=== PATIENT | male | born 1940 | race Caucasian/White ===

== ENCOUNTER 2018-01-28 16:11 | Emergency (ER) | payer OTHER ==
--- NOTE | 2018-01-28 16:33 | EDM.PDOC ---
ED HPI GENERAL MEDICAL PROBLEM - General Chief Complaint: ENT Problem Stated Complaint: NOSE BLEED Time Seen by Provider: 01/28/18 16:18 Source of Information: Reports: Patient, Family History Limitations: Reports: No Limitations - History of Present Illness INITIAL COMMENTS - FREE TEXT/NARRATIVE: 77-year-old male presents to the ED with an active right-sided nose bleed 45 minutes. No trauma to the nose. Patient is receiving chemotherapy and has had recent radiation to his left femur due to metastatic disease to the bone. His primary left-sided lung cancer and is starting chemotherapy. Last chemotherapy was on January 26. Platelet count was 170,000 at that time. Onset: Today Onset Date: 01/28/18 Onset Time: 15:30 Duration: Minutes: Location: Reports: Face Quality: Reports: Other Severity: Moderate (No pain.) Improves with: Reports: None Worsens with: Reports: None Context: Denies: Activity, Exercise, Lifting, Sick Contact, Trauma, Other Associated Symptoms: Denies: No Other Symptoms, Confusion, Chest Pain, Cough, cough w sputum, Diaphoresis, Fever/Chills, Headaches, Loss of Appetite, Malaise , Nausea/Vomiting, Rash, Shortness of Breath, Syncope, Weakness Treatments [employer]: Reports: Other (see below) (None.) - Related Data Allergies Allergy/AdvReac Type Severity Reaction Status Date / Time No Known Allergies Allergy Verified 01/28/18 16:27 Home Meds: Home Meds Levofloxacin [Levaquin] 500 mg PO DAILY #21 tab 07/18/14 [Rx] Phenazopyridine HCl [Pyridium] 200 mg PO Q6H #5 tablet 07/18/14 [Rx] Bacitracin/Polymyxin B Sulfate [Polysporin Ointment] 28.3 gm TP DAILY #1 oint...g. 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 Chronic prostatitis), Other Musculoskeletal: Reports: Back Pain, Other (Left femur had recent rodding done because of pathological fracture) Skin: Reports: Bruising Neurological: Reports: No Symptoms (His is easily) Psychiatric: Reports: No Symptoms Hematologic/Lymphatic: Reports: No Symptoms ED EXAM, ENT - Physical Exam Exam: See Below Exam Limited By: No Limitations General Appearance: Alert, WD/WN, Mild Distress (Quite anxious.) Nose: Active Bleeding ( This area was cauterized with silver nitrate mild no bleeding into detected on the left side appears that it was coming from the right side. ), Other (Has an active area of bleeding from the superior aspect of the anterior nasal septum right side.) Mouth/Throat: Other Head: Atraumatic, Normocephalic Neck: Normal Inspection, Supple, Non-Tender, Full Range of Motion. No: Lymphadenopathy (L), Lymphadenopathy (R) Respiratory/Chest: No Respiratory Distress, Lungs Clear, Normal Breath Sounds Cardiovascular: Normal Peripheral Pulses, Regular Rate, Rhythm, No Edema, No Gallop, No Murmur, No Rub GI/Abdominal: Normal Bowel Sounds, Soft, Non-Tender, No Organomegaly, No Abnormal Bruit, No Mass, Pelvis Stable Neurological: Alert, Oriented, CN II-XII Intact, Normal Cognition Psychiatric: Normal Affect, Normal Mood Skin: Warm, Dry, Intact, Normal Color, No Rash Course - Vital Signs Last Recorded V/S: Last Vital Signs Temp 37.3 C 01/28/18 16:23 Pulse 81 01/28/18 16:23 Resp 20 01/28/18 16:23 BP 121/55 L 01/28/18 16:23 Pulse Ox 92 L 01/28/18 16:23 - Radiology Interpretation Free Text/Narrative:: 77-year-old male presents to the ED with active bleeding from the right anterior knee naris. Patient is currently receiving chemotherapy and radiotherapy for primary left-sided lung cancer. Has known metastatic disease to bones. Last chemotherapy was 3 days ago. Is too early for the bone marrow to be severely incapacitated from chemotherapy. The area of the anterior nasal septum was cauterized with silver nitrate which worked very well to control the bleeding. He suddenly was able to express a large amount of clot from the posterior nares without any further active bleeding on recheck. Departure - Departure Time of Disposition: 16:43 Disposition: Home, Self-Care 01 Condition: Fair Clinical Impression: Anterior epistaxis - Discharge Information Prescriptions: Bacitracin/Polymyxin B Sulfate [Polysporin Ointment] 28.3 gm TP DAILY #1 oint...g. Instructions: Nosebleed, Adult, [id number] Referrals: PCP,Not In Area [Primary Care Provider] - Forms: ED Department Discharge Additional Instructions: Evaluation the emergency room today in regards to anterior nasal hemorrhage from the right naris. The area was identified and cauterized with silver nitrate which brought the bleeding under proper control. You able to express a good deal of clot from the posterior aspect of the right naris with no active further bleeding. The nasal bleeding is usually due to dryness of the lining of the nose which is worsened by chemotherapy and of course by oxygen use. Nasal prongs. Suggest use of Polysporin ointment into each side of the naris at least once daily perhaps an hour or so before bedtime when you're going to put her oxygen on. Of course return to the ED if you have any further nasal bleeding.
== END 2018-01-28 16:52 | disposition home or self-care (01) ==
LOC: JD.ED 16:11
DX: R04.0 Epistaxis (principal); J44.9 Chronic obstructive pulmonary disease, unspecified; C34.92 Malignant neoplasm of unspecified part of left bronchus or lung; C79.51 Secondary malignant neoplasm of bone; Z79.899 Other long term (current) drug therapy
CPT/HCPCS: 30901; 99283-25

== ENCOUNTER 2018-01-29 14:36 | Emergency (ER) | payer OTHER ==
[2018-01-29] MEDS ORDERED: Oxymetazoline 0.05% Nasal Spray 15 ML Bottle NAS ONE (15:54)
--- NOTE | 2018-01-29 17:05 | EDM.PDOC ---
ED HPI GENERAL MEDICAL PROBLEM - General Chief Complaint: ENT Problem Stated Complaint: NOSE BLEED Time Seen by Provider: 01/29/18 15:10 Source of Information: Reports: Patient History Limitations: Reports: No Limitations - History of Present Illness INITIAL COMMENTS - FREE TEXT/NARRATIVE: 77-year-old male presents for evaluation and treatment of nose bleed. Patient was seen in the ER yesterday. He had the right nare cauterized. He states since he has left his nosebleed has continued to ooze. States at times it was gushing blood. Currently bleeding is under control as he has some tissue up both nares. He states that he has been having bleeding from both nares. Reports associated symptoms of congestion. No trauma to the nose. Patient reports he has had some bleeding going on the back of his throat. Patient is currently receiving chemo and radiation for lung cancer with metastasis to his femur. Patient was in [place] today for radiation treatment. He is not currently on any blood thinners Right Upper Leg Pain Score (Numeric/FACES): 7 - Related Data Allergies Allergy/AdvReac Type Severity Reaction Status Date / Time No Known Allergies Allergy Verified 01/28/18 16:27 Home Meds: Home Meds Phenazopyridine HCl [Pyridium] 200 mg PO Q6H #5 tablet 07/18/14 [Rx] Bacitracin/Polymyxin B Sulfate [Polysporin Ointment] 28.3 gm TP DAILY #1 oint...g. 01/28/18 [Rx] Albuterol/Ipratropium [DuoNeb 3.0-0.5 MG/3 ML] 1 unit INH QID 01/29/18 [History] Aspirin 325 mg PO DAILY 01/29/18 [History] Cetirizine [ZyrTEC] 10 mg PO DAILY 01/29/18 [History] Cholecalciferol (Vitamin D3) [Vitamin D3] 1,000 unit PO DAILY 01/29/18 [History] Citalopram Hydrobromide [Celexa] 20 mg PO DAILY 01/29/18 [History] Divalproex Sodium [Depakote ER] 500 mg PO BEDTIME 01/29/18 [History] Doxazosin Mesylate [Cardura] 12 mg PO DAILY 01/29/18 [History] Finasteride [Proscar] 5 mg PO DAILY 01/29/18 [History] Gabapentin [Neurontin] 900 mg PO BEDTIME 01/29/18 [History] Hydrocodone/Acetaminophen [Hydrocodon-Acetaminophen 5-325] 5 - 325 mg PO Q4H PRN 01/29/18 [History] Hydrocortisone [Anusol-HC] 1 applic RECTAL QID PRN 01/29/18 [History] Hydrocortisone [Hydrocortisone 1% Crm] 1 applic TOP BID 01/29/18 [History] Hydrophilic Ointment [Hydrophilic] 1 applic TOP BID 01/29/18 [History] Losartan [Cozaar] 50 mg PO DAILY 01/29/18 [History] NIFEdipine [Procardia] 1 supp RECTAL BID PRN 01/29/18 [History] Naproxen Sodium [Aleve] 220 - 440 mg PO DAILY PRN 01/29/18 [History] Ondansetron [Zofran] 8 mg PO Q8H PRN 01/29/18 [History] Sennosides [Senna] 2 tab PO BID 01/29/18 [History] Witch Kusum [Tucks] 1 applic TOP TID PRN 01/29/18 [History] atorvaSTATin [Lipitor] 40 mg PO BEDTIME 01/29/18 [History] metFORMIN [Glucophage XR] 500 mg PO BID 01/29/18 [History] oxyCODONE 10 mg PO Q4H PRN 01/29/18 [History] Past Medical History HEENT History: Reports: Epistaxis Cardiovascular History: Reports: High Cholesterol, Hypertension Respiratory History: Reports: COPD Other Respiratory History: lung CA Gastrointestinal History: Reports: Hemorrhoids Genitourinary History: Reports: BPH, Prostate Disorder Other Genitourinary History: states "i habe blood in my pee ometimes, at least thats what they tell me" Psychiatric History: Reports: Anxiety, Bipolar, Depression, Mood Swings Endocrine/Metabolic History: Reports: Diabetes, Type II Oncologic (Cancer) History: Reports: 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 - Past Surgical History GI Surgical History: Reports: Hernia, Abdominal Musculoskeletal Surgical History: Reports: Knee Replacement, Shoulder Replacement, Shoulder Surgery Social & Family History - Family History Family Medical History: Noncontributory - Tobacco Use Smoking Status *Q: Former Smoker Used Tobacco, but Quit: Yes Month/Year Tobacco Last Used: 30 yrs - Caffeine Use Caffeine Use: Reports: Coffee, Soda, Tea - Recreational Drug Use Recreational Drug Use: No - Living Situation & Occupation Living situation: Reports: Single Occupation: Retired ED ROS ENT - Review of Systems Review Of Systems: See Below HEENT: Reports: Nosebleed, Other (reports congestion) ED EXAM, ENT - Physical Exam Exam: See Below Exam Limited By: No Limitations General Appearance: Alert, WD/WN, No Apparent Distress Ears: Normal External Exam Nose: Normal Inspection, Dried Blood (Right there). No: Nasal Tenderness, Septal Hematoma, Septal Perforation, Active Bleeding Mouth/Throat: Normal Inspection, Normal Lips, Normal Oropharynx, Normal Teeth, Other (Mild amount of blood in the posterior oropharynx) Respiratory/Chest: No Respiratory Distress Neurological: Alert, Oriented, Normal Cognition, Normal Gait Psychiatric: Normal Affect, Normal Mood Skin: Warm, Dry, Pallor Course - Vital Signs Last Recorded V/S: Last Vital Signs Temp 36.8 C 01/29/18 14:47 Pulse 82 01/29/18 14:47 Resp 16 01/29/18 17:15 BP 138/54 L 01/29/18 14:47 Pulse Ox 96 01/29/18 17:15 - Orders/Labs/Meds Labs: Laboratory Tests 01/29/18 01/29/18 Range/Units 16:20 16:20 WBC 5.64 (4.23-9.07) K/mm3 RBC 2.96 L (4.63-6.08) M/mm3 Hgb 8.8 L (13.7-17.5) gm/L Hct 27.6 L (40.1-51.0) % MCV 93.2 H (79.0-92.2) fl MCH 29.7 (25.7-32.2) pg MCHC 31.9 L (32.2-35.5) g/dl RDW Std Deviation 45.4 H (35.1-43.9) fL Plt Count 157 L (163-337) K/mm3 MPV 9.7 (9.4-12.3) fl Neut % (Auto) 79.3 H (34.0-67.9) % Lymph % (Auto) 11.9 L (21.8-53.1) % Hernando % (Auto) 8.2 (5.3-12.2) % Eos % (Auto) 0.4 L (0.8-7.0) Baso % (Auto) 0.0 L (0.1-1.2) % Neut # (Auto) 4.48 (1.78-5.38) K/mm3 Lymph # (Auto) 0.67 L (1.32-3.57) K/mm3 Hernando # (Auto) 0.46 (0.30-0.82) K/mm3 Eos # (Auto) 0.02 L (0.04-0.54) K/mm3 Baso # (Auto) 0.00 L (0.01-0.08) K/mm3 PT 11.1 (9.5-12.1) SECONDS INR 1.02 APTT 26 (24-31) SECONDS Meds: Medications Discontinued Medications Generic Name Dose Route Start Last Admin Trade Name Freq PRN Reason Stop Dose Admin Oxymetazoline HCl 2 ml 01/29/18 15:54 01/29/18 15:56 Afrin Original 0.05% Nasal Irwin LUISANA 01/29/18 15:55 2 spray ONETIME ONE Administration - Re-Assessments/Exams Free Text/Narrative Re-Assessment/Exam: 01/29/18 17:01 I reviewed the labs with the patient. Upon arrival of the ER did have the patient blow out any clots. He did blowout a large approximate half-dollar size clot to the right near. He has not had any bleeding from the left nare. He also gargled some water and removed any blood from the posterior oropharynx. On reexamination no new blood was appreciated. I did have nursing staff apply 2 sprays of Afrin. This greatly helped with his congestion and he has not had any bleeding since she's been in the I did offer to place a Rhino Rocket soaked in TXA as he states he continues to ooze blood. He is adamant he does not want this. At this point he would like to go home. As stated he has not had any rebleeding since entering the ER and is doing well after the Afrin. Instructed to use pressure and he may utilize a few squirts of Afrin if he rebleeds. Instructed to follow-up with ear, nose and throat as needed. Discharge instructions as documented. Departure - Departure Time of Disposition: 17:02 Disposition: Home, Self-Care 01 Condition: Fair Clinical Impression: Epistaxis - Discharge Information Instructions: Nosebleed, Adult, [id number] Referrals: PCP,Not In Area [Primary Care Provider] - Forms: ED Department Discharge Additional Instructions: Follow-up with your primary care provider as needed. you may use Afrin, this is available [id number], 1 or 2 sprays in the bleeding nostril if you do develop a recurrence of your nose bleed. Apply pressure. For severe nosebleeds that are not responding to pressure and Afrin please return to the ER. A\\Do not use afrin more than 5 days as this may cause rebound congestion. Recommend using humidity. Follow-up with your oncologist as planned. If nosebleeds continue to be a problem or a daily occurrence for you, considering seeing ear, nose and throat [facility]. They are able go in and cauterize problematic vessels. please return to the ER if your symptoms change or worsen.
== END 2018-01-29 17:14 | disposition home or self-care (01) ==
LOC: JD.ED 14:36
DX: R04.0 Epistaxis (principal); E78.00 Pure hypercholesterolemia, unspecified; I10 Essential (primary) hypertension; E11.9 Type 2 diabetes mellitus without complications; Z79.82 Long term (current) use of aspirin; Z79.899 Other long term (current) drug therapy; Z79.84 Long term (current) use of oral hypoglycemic drugs; Z87.891 Personal history of nicotine dependence
CPT/HCPCS: 36415; 85025; 85610; 85730; 99283

== ENCOUNTER 2018-02-04 17:39 | Emergency (ER) | payer OTHER ==
--- NOTE | 2018-02-04 18:16 | EDM.PDOC ---
ED HPI GENERAL MEDICAL PROBLEM - General Chief Complaint: Lower Extremity Injury/Pain Stated Complaint: LEG PAIN/AND HE HEARD A POP Time Seen by Provider: 02/04/18 18:16 Source of Information: Reports: Patient - History of Present Illness INITIAL COMMENTS - FREE TEXT/NARRATIVE: Patient is here for evaluation of pain to the right upper leg. He states that just before arrival he was walking and turned around the edge of his car and felt himself slip/trip, he did catch himself without falling. He noted significant pain to his right upper leg after that. He is unable to bear weight due to the pain. Patient does have metastatic lung cancer, recently had tumor removal to his right femur with eli placement approximately one month ago. Right Leg Pain Score (Numeric/FACES): 7 - Related Data Allergies Allergy/AdvReac Type Severity Reaction Status Date / Time No Known Allergies Allergy Verified 02/04/18 18:00 Home Meds: Home Meds Albuterol/Ipratropium [DuoNeb 3.0-0.5 MG/3 ML] 1 unit INH QID 01/29/18 [History] Aspirin 325 mg PO DAILY 01/29/18 [History] Cetirizine [ZyrTEC] 10 mg PO DAILY 01/29/18 [History] Cholecalciferol (Vitamin D3) [Vitamin D3] 1,000 unit PO DAILY 01/29/18 [History] Citalopram Hydrobromide [Celexa] 20 mg PO DAILY 01/29/18 [History] Divalproex Sodium [Depakote ER] 500 mg PO BEDTIME 01/29/18 [History] Doxazosin Mesylate [Cardura] 12 mg PO DAILY 01/29/18 [History] Finasteride [Proscar] 5 mg PO DAILY 01/29/18 [History] Gabapentin [Neurontin] 900 mg PO BEDTIME 01/29/18 [History] Hydrocodone/Acetaminophen [Hydrocodon-Acetaminophen 5-325] 1 - 2 tab PO Q4H PRN 01/29/18 [History] Hydrocortisone [Anusol-HC] 1 applic RECTAL QID 01/29/18 [History] Hydrophilic Ointment [Hydrophilic] 1 applic TOP BID PRN 01/29/18 [History] Losartan [Cozaar] 25 mg PO DAILY 01/29/18 [History] NIFEdipine [Procardia] 1 supp RECTAL BID PRN 01/29/18 [History] Naproxen Sodium [Aleve] 220 - 440 mg PO DAILY PRN 01/29/18 [History] Ondansetron [Zofran] 8 mg PO Q8H PRN 01/29/18 [History] Sennosides [Senna] 2 tab PO BID 01/29/18 [History] Mirian Noe [Tucks] 1 applic TOP TID PRN 01/29/18 [History] atorvaSTATin [Lipitor] 80 mg PO BEDTIME 01/29/18 [History] metFORMIN [Glucophage XR] 500 mg PO BID 01/29/18 [History] oxyCODONE 10 mg PO Q4H PRN 01/29/18 [History] Hydrocortisone [Anusol-Hc] 1 applic TP ASDIRECTED PRN 02/04/18 [History] Hydrocortisone1%-Clotrimazole 1 applic TOP BID 02/04/18 [History] Nifedipine 0.2%-Lidocaine 2%. 1 supp RECTAL BID PRN 02/04/18 [History] Sennosides/Docusate Sodium [Senna-Docusate Sodium] 2 each PO BID 02/04/18 [ History] Past Medical History HEENT History: Reports: Epistaxis Cardiovascular History: Reports: High Cholesterol, Hypertension Respiratory History: Reports: COPD Other Respiratory History: lung CA Gastrointestinal History: Reports: Hemorrhoids Genitourinary History: Reports: BPH, Prostate Disorder Other Genitourinary History: states "i habe blood in my pee ometimes, at least thats what they tell me" Psychiatric History: Reports: Anxiety, Bipolar, Depression, Mood Swings Endocrine/Metabolic History: Reports: Diabetes, Type II Oncologic (Cancer) History: Reports: 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 - Past Surgical History GI Surgical History: Reports: Hernia, Abdominal Musculoskeletal Surgical History: Reports: Knee Replacement, Shoulder Replacement, Shoulder Surgery Social & Family History - Family History Family Medical History: Noncontributory - Tobacco Use Smoking Status *Q: Never Smoker - Caffeine Use Caffeine Use: Reports: Coffee - Recreational Drug Use Recreational Drug Use: No - Living Situation & Occupation Living situation: Reports: Single Occupation: Retired Review of Systems - Review of Systems Review Of Systems: See Below Respiratory: Reports: No Symptoms Cardiovascular: Reports: No Symptoms Musculoskeletal: Reports: Leg Pain (Right upper) Skin: Reports: No Symptoms Neurological: Reports: Difficulty Walking. Denies: Numbness, Tingling, Weakness ED EXAM, GENERAL - Physical Exam Exam: See Below Exam Limited By: No Limitations General Appearance: Alert, WD/WN, No Apparent Distress Peripheral Pulses: 2+: Posterior Tibial (R) Extremities: Leg Pain, Other (Right leg with well-healed surgical scars over hip and anterior knee. No obvious deformity or ecchymosis. No swelling noted. Patient has pain to posterior thigh with movement of the knee or hip. No tenderness to hip or knee. Minimal tenderness to mid femur posteriorly.) Neurological: Alert, Oriented, No Motor/Sensory Deficits Psychiatric: Normal Affect, Normal Mood Skin Exam: Warm, Dry, Intact Course - Vital Signs Last Recorded V/S: Last Vital Signs Temp 98 F 02/04/18 17:56 Pulse 74 02/04/18 17:56 Resp 18 02/04/18 17:56 BP 131/63 02/04/18 17:56 Pulse Ox 94 L 02/04/18 17:56 - Orders/Labs/Meds Orders: Active Orders 24 hr Category Date Time Status Femur Min 2V Rt [CR] Stat Exams 02/04/18 18:44 Taken - Re-Assessments/Exams Free Text/Narrative Re-Assessment/Exam: Patient has his own, hydrocodone 5-325mg with him, took this at time of arrival. He states he was on this previously after his hip surgery, but has not needed this in several days. Will get x-ray of right femur to further assess. 02/04/18 18:28 X-ray demonstrates lytic lesion. Femoral eli is in good position. No acute findings noted. Official report is pending, x-ray was reviewed with Dr. See. Recommend that patient be nonweightbearing and use crutches, patient declines to do this due to chronic shoulder arthritis. Patient was tried in a long-leg brace/immobilizer and did well with this. Recommend minimal weight-bearing. Ibuprofen as needed for pain, hydrocodone for breakthrough pain. He is to follow-up with his primary provider or his orthopedic provider within the next week. Return to emergency room if needed. 02/04/18 19:38 Departure - Departure Time of Disposition: 19:39 Disposition: Home, Self-Care 01 Condition: Good Clinical Impression: Upper leg pain Qualifiers: Laterality: right Qualified Code(s): M79.651 - Pain in right thigh - Discharge Information Instructions: Hamstring Strain Referrals: PCP,Not In Area [Primary Care Provider] - Forms: ED Department Discharge Additional Instructions: Rest, activity as tolerated. Wearing your brace when you're up throughout the day. Aleve 2x daily. Ice as needed for pain. Hydrocodone for breakthrough pain. You need to follow up with either your primary provider or your orthopedic provider within the next week. If you have any problems with coordinating this through [facility] you can call Chichi Vargas' office at [phone]. Return to the emergency room if any worsening of symptoms or any concerns. - My Orders Last 24 Hours: My Active Orders 02/04/18 18:44 Femur Min 2V Rt [CR] Stat - Assessment/Plan Last 24 Hours: My Active Orders 02/04/18 18:44 Femur Min 2V Rt [CR] Stat
--- NOTE | 2018-02-04 20:45 | CR ---
Right femur: 2 views of the right femur are obtained. Comparison: No previous study. Intramedullary eli is noted as well as fixation nail into the femoral head. There is an ill-defined lucency within the medial cortex of the mid one third femur with slight periosteal reaction suspicious for possible osteomyelitis. Well defined tract is identified in the same region along the lateral aspect of the femoral cortex presumably being postsurgical. Knee prosthesis is noted. Vascular calcification is seen. No additional abnormality is seen. Impression: 1. Ill defined lucency within the medial cortex of the mid one third femur with adjacent periosteal reaction suspicious for osteomyelitis. 2. Well-defined lucency along the lateral aspect of the femoral shaft in the same region most likely a postsurgical defect. 3. Other incidental findings. Diagnostic code #5
== END 2018-02-04 19:52 | disposition home or self-care (01) ==
LOC: JD.ED 17:39
DX: M79.651 Pain in right thigh (principal); E78.00 Pure hypercholesterolemia, unspecified; I10 Essential (primary) hypertension; J44.9 Chronic obstructive pulmonary disease, unspecified; F31.9 Bipolar disorder, unspecified; F41.9 Anxiety disorder, unspecified; E11.9 Type 2 diabetes mellitus without complications; Z79.82 Long term (current) use of aspirin; Z79.899 Other long term (current) drug therapy; Z79.84 Long term (current) use of oral hypoglycemic drugs
CPT/HCPCS: 73552-26-RT; 73552-RT; 99283

== ENCOUNTER 2021-06-05 15:54 | Emergency (ER) | payer OTHER ==
[2021-06-05] MEDS ORDERED: Ondansetron 4 MG/2 ML SDV IVPUSH ONE (18:20)
[2021-06-05] MEDS ORDERED: HYDROmorphone 0.5 MG/0.5 ML Syringe IVPUSH ONE (18:20)
[2021-06-05] MEDS ORDERED: Sodium Chloride 0.9% 1,000 ML IV SCH (18:30)
[2021-06-05] MEDS ORDERED: diphenhydrAMINE 50 MG/ML SDV IVPUSH PRN (19:02)
[2021-06-05] MEDS ORDERED: EPINEPHrine 1 MG/ML SDV IM PRN (19:02)
[2021-06-05] MEDS ORDERED: Famotidine 20 MG/2 ML SDV IVPUSH PRN (19:02)
[2021-06-05] MEDS ORDERED: methylPREDNISolone Sodium Succinate 125 MG/2 ML SDV IVPUSH PRN (19:02)
[2021-06-05] MEDS ORDERED: Sodium Chloride 0.9% 10 ML Syringe FLUSH SCH (19:15)
--- NOTE | 2021-06-05 19:18 | EDM.PDOC ---
ED HPI GENERAL MEDICAL PROBLEM - General Chief Complaint: Respiratory Problem Stated Complaint: COVID +/WORSENING SYMPTOMS Time Seen by Provider: 06/05/21 16:48 Source of Information: Reports: Patient, RN Notes Reviewed - History of Present Illness INITIAL COMMENTS - FREE TEXT/NARRATIVE: 80 yr old male became ill with cough, chills, low grade fever, diarrhea about 8 days ago. Has recently tested positive for covid. He did get the vaccine last spring. He has hx of treated lung cancer, COPD, CAD, diabetes. He feels worse, Usehas been more short of breath the last few day, no appetite, more diarrhea the last few days. Uses oxygen at home at night, some of the time during the day. Generalized Pain Score (Numeric/FACES): 7 - Related Data Allergies Allergy/AdvReac Type Severity Reaction Status Date / Time No Known Allergies Allergy Verified 06/05/21 16:31 Home Meds: Home Meds Albuterol/Ipratropium [DuoNeb 3.0-0.5 MG/3 ML] 1 unit INH QID 01/29/18 [History] Aspirin 325 mg PO DAILY 01/29/18 [History] Cetirizine [ZyrTEC] 10 mg PO DAILY 01/29/18 [History] Cholecalciferol (Vitamin D3) [Vitamin D3] 1,000 unit PO DAILY 01/29/18 [History] Citalopram Hydrobromide [Celexa] 20 mg PO DAILY 01/29/18 [History] Divalproex Sodium [Depakote ER] 500 mg PO BEDTIME 01/29/18 [History] Doxazosin Mesylate [Cardura] 12 mg PO DAILY 01/29/18 [History] Finasteride [Proscar] 5 mg PO DAILY 01/29/18 [History] Gabapentin [Neurontin] 900 mg PO BEDTIME 01/29/18 [History] Hydrocodone/Acetaminophen [Hydrocodon-Acetaminophen 5-325] 1 - 2 tab PO Q4H PRN 01/29/18 [History] Hydrocortisone [Anusol-HC] 1 applic RECTAL QID 01/29/18 [History] Hydrophilic Ointment [Hydrophilic] 1 applic TOP BID PRN 01/29/18 [History] Losartan [Cozaar] 25 mg PO DAILY 01/29/18 [History] NIFEdipine [Procardia] 1 supp RECTAL BID PRN 01/29/18 [History] Naproxen Sodium [Aleve] 220 - 440 mg PO DAILY PRN 01/29/18 [History] Ondansetron [Zofran] 8 mg PO Q8H PRN 01/29/18 [History] Sennosides [Senna] 2 tab PO BID 01/29/18 [History] atorvaSTATin [Lipitor] 80 mg PO BEDTIME 01/29/18 [History] metFORMIN [Glucophage XR] 500 mg PO BID 01/29/18 [History] oxyCODONE 10 mg PO Q4H PRN 01/29/18 [History] gonzalo Lafleur [Tucks] 1 applic TOP TID PRN 01/29/18 [History] Hydrocortisone [Anusol-Hc] 1 applic TP ASDIRECTED PRN 02/04/18 [History] Hydrocortisone1%-Clotrimazole 1 applic TOP BID 02/04/18 [History] Nifedipine 0.2%-Lidocaine 2%. 1 supp RECTAL BID PRN 02/04/18 [History] Sennosides/Docusate Sodium [Senna-Docusate Sodium] 2 each PO BID 02/04/18 [History] Past Medical History HEENT History: Reports: Epistaxis Cardiovascular History: Reports: High Cholesterol, Hypertension Respiratory History: Reports: COPD Other Respiratory History: lung CA Gastrointestinal History: Reports: Hemorrhoids Genitourinary History: Reports: BPH, Prostate Disorder Other Genitourinary History: states "i habe blood in my pee ometimes, at least thats what they tell me" Psychiatric History: Reports: Anxiety, Bipolar, Depression, Mood Swings Endocrine/Metabolic History: Reports: Diabetes, Type II Oncologic (Cancer) History: Reports: 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 Denies: Diaphoresis HEENT: Reports: Rhinitis. Denies: Throat Pain Respiratory: Reports: Shortness of Breath, Cough Cardiovascular: Denies: Chest Pain Endocrine: Reports: Fatigue GI/Abdominal: Reports: Diarrhea, Decreased Appetite, Nausea. Denies: Abdominal Pain, Vomiting Musculoskeletal: Reports: Other (generalized achiness) Skin: Denies: Rash Neurological: Reports: Headache, Weakness (generalized) ED EXAM, GENERAL - Physical Exam Exam: See Below General Appearance: Alert, No Apparent Distress Head: Atraumatic Neck: Supple Cardiovascular: Regular Rate, Rhythm GI/Abdominal: Non-Tender. No: Guarding Extremities: Normal Inspection. No: Pedal Edema, Leg Pain, Increased Warmth, Redness Neurological: Alert, Oriented, No Motor/Sensory Deficits Skin Exam: Warm, Dry, Normal Color Course - Vital Signs Last Recorded V/S: Last Vital Signs Temp 100.0 F 06/05/21 16:19 Pulse 93 06/05/21 16:19 Resp 23 H 06/05/21 16:19 BP 131/59 L 06/05/21 16:19 Pulse Ox 93 L 06/05/21 16:19 - Orders/Labs/Meds Labs: Laboratory Tests 06/05/21 06/05/21 Range/Units 17:39 17:39 WBC 3.28 L (4.23-9.07) K/mm3 RBC 3.64 L (4.63-6.08) M/mm3 Hgb 10.6 L D (13.7-17.5) gm/dl Hct 33.5 L (40.1-51.0) % MCV 92.0 (79.0-92.2) fl MCH 29.1 (25.7-32.2) pg MCHC 31.6 L (32.2-35.5) g/dl RDW Std Deviation 47.1 H (35.1-43.9) fL Plt Count 85 L (163-337) K/mm3 MPV 10.8 (9.4-12.3) fl Neut % (Auto) 69.5 H (34.0-67.9) % Lymph % (Auto) 12.2 L (21.8-53.1) % [place] % (Auto) 18.0 H (5.3-12.2) % Eos % (Auto) 0 L (0.8-7.0) Baso % (Auto) 0.0 L (0.1-1.2) % Neut # (Auto) 2.28 (1.78-5.38) K/mm3 Lymph # (Auto) 0.40 L (1.32-3.57) K/mm3 [place] # (Auto) 0.59 (0.30-0.82) K/mm3 Eos # (Auto) 0.00 L (0.04-0.54) K/mm3 Baso # (Auto) 0.00 L (0.01-0.08) K/mm3 Manual Slide Review Abnormal smear Sodium 139 (136-145) mEq/L Potassium 4.0 (3.5-5.1) mEq/L Chloride 103 (98-107) mEq/L Carbon Dioxide 28 (21-32) mEq/L Anion Gap 12.0 (5-15) BUN 34 H (7-18) mg/dL Creatinine 1.6 H (0.7-1.3) mg/dL Est Cr Clr Drug Dosing 35.00 mL/min Estimated GFR (MDRD) 42 (>60) mL/min BUN/Creatinine Ratio 21.3 H (14-18) Glucose 138 H (70-99) mg/dL Calcium 7.8 L (8.5-10.1) mg/dL Total Bilirubin 0.6 (0.2-1.0) mg/dL AST 43 H (15-37) U/L ALT 44 (16-63) U/L Alkaline Phosphatase 70 (46-116) U/L C-Reactive Protein 6.7 H* (<1.0) mg/dL Total Protein 6.5 (6.4-8.2) g/dl Albumin 3.1 L (3.4-5.0) g/dl Globulin 3.4 gm/dL Albumin/Globulin Ratio 0.9 L (1-2) Meds: Medications Discontinued Medications Generic Name Dose Route Start Last Admin Trade Name Freq PRN Reason Stop Dose Admin Diphenhydramine HCl 50 mg 06/05/21 19:02 Diphenhydramine 50 Mg/Ml Sdv IVPUSH ONETIME PRN hypersensitivity reaction Epinephrine HCl 0.3 mg 06/05/21 19:02 Epinephrine 1 Mg/Ml Sdv IM ONETIME PRN hypersensitivity reaction Famotidine 20 mg 06/05/21 19:02 Famotidine 20 Mg/2 Ml Sdv IVPUSH ONETIME PRN hypersensitivity reaction Heparin Sodium (Porcine) 500 units 06/05/21 20:14 06/05/21 20:19 Heparin Sodium 100 Units/Ml 5 Ml Syringe FLUSH 06/05/21 20:15 500 units ASDIRECTED ONE Administration Hydromorphone HCl 0.5 mg 06/05/21 18:20 06/05/21 19:04 Hydromorphone 0.5 Mg/0.5 Ml Syringe IVPUSH 06/05/21 18:21 0.5 mg ONETIME ONE Administration Sodium Chloride 1,000 mls @ 999 mls/hr 06/05/21 18:30 06/05/21 19:04 Normal Saline IV 999 mls/hr ONETIME CORRINA Administration CASIRIVIMAB/IMDEVIMAB 10 ml/ 110 mls @ 220 mls/hr 06/05/21 19:02 06/05/21 19:29 Sodium Chloride IV 06/05/21 19:31 220 mls/hr ONETIME ONE Administration Methylprednisolone Sodium Succinate 125 mg 06/05/21 19:02 Methylprednisolone Sodium Succinate 125 Mg/2 Ml Sdv IVPUSH ONETIME PRN hypersensitivity reaction Ondansetron HCl 4 mg 06/05/21 18:20 06/05/21 19:22 Ondansetron 4 Mg/2 Ml Sdv IVPUSH 06/05/21 18:21 Not Given ONETIME ONE Sodium Chloride 30 ml 06/05/21 19:15 Sodium Chloride 0.9% 10 Ml Syringe FLUSH ASDIRECTED CORRINA - Re-Assessments/Exams Free Text/Narrative Re-Assessment/Exam: 06/06/21 11:07 CXR is clear, no visible pneumonia. Labs relatively OK, CRP 6.7. With his age and multiple underlying medical conditions he is a reasonable candidate for IV regeneron. Risks/ benefits discussed with patient. He wants to get it as long as we can do it as soon as possible so he can get home. Discussed with patient that this is an emergency autherization medication, does not have FDA approval. He has no further questions, voices understanding and agrees to proceed with IV reg. treatment. Departure - Departure Time of Disposition: 19:16 Disposition: Home, Self-Care 01 Condition: Fair Clinical Impression: COVID-19 virus infection, Diarrhea - Discharge Information Instructions: Prone Position Therapy, COVID-19 Referrals: Skager,Melody, MD [Primary Care Provider] - Forms: ED Department Discharge Additional Instructions: Rest. Drink plenty of water to maintain hydration. Tylenol q 6 to 8 hr for headache, other discomfort as needed. Continue to isolate at home until cleared by the [facility]. Return to ED for severe difficulty breathing or otherwise as needed.
--- NOTE | 2021-06-06 07:48 | CR ---
Chest: Frontal view of the chest was obtained. Comparison: No prior chest imaging is available. Heart size is normal. Tortuous thoracic aorta is seen with atherosclerotic calcification. Right shoulder prosthesis is noted. Slight linear density is seen within the left upper chest most likely representing an area of scarring. Infusion port is seen on the left side entering the superior vena cava. Impression: 1. Findings which are believed to be chronic as noted above. 2. Nothing acute is seen. Diagnostic code #2
== END 2021-06-05 20:35 | disposition home or self-care (01) ==
LOC: JD.ED 15:54
DX: U07.1 COVID-19 (principal); R19.7 Diarrhea, unspecified; I10 Essential (primary) hypertension; E78.00 Pure hypercholesterolemia, unspecified; J44.9 Chronic obstructive pulmonary disease, unspecified; E11.9 Type 2 diabetes mellitus without complications; Z79.82 Long term (current) use of aspirin; Z79.899 Other long term (current) drug therapy; Z79.84 Long term (current) use of oral hypoglycemic drugs; Z86.16 Personal history of COVID-19
CPT/HCPCS: 36415; 71045; 80053; 85025; 86140; 96374; 99284; J1170; J1642; J7030; M0243; Q0243

== ENCOUNTER 2021-07-23 20:24 | Emergency (ER) | payer OTHER ==
--- NOTE | 2021-07-23 21:28 | EDM.PDOC ---
ED HPI GENERAL MEDICAL PROBLEM - General Chief Complaint: Chest Pain Stated Complaint: [facility] Time Seen by Provider: 07/23/21 20:56 Source of Information: Reports: Patient, Family (Daughter) History Limitations: Reports: No Limitations - History of Present Illness INITIAL COMMENTS - FREE TEXT/NARRATIVE: Mr. Nevarez is a pleasant 80-year-old gentleman who is now brought to the ED by EMS for sharp, intermittent left sided chest pain. He indicates the site of the pain is immediately inferior to his left breast, and he points to the area with one finger. He states that when present, the pain typically lasts for 3 to 4 seconds, and that it recurred about every 5 minutes, to a total of 7 episodes today. He acknowledges, however, that he experienced the same pain when he was diagnosed with COVID-19 on or about 06/06/2021, plus another episode about 1 week after that, plus another episode of while after that. He has not identified any modifiers. He states that he has had chronic dyspnea for the past 9 years, which is unchanged, and denies any other associated symptoms, such as nausea, diaphoresis, or sense of impending doom. Here in the ED, the patient's initial BP was found to be elevated at 179/78, otherwise, he is hemodynamically stable, afebrile, saturating 97% on 3 L of oxygen per nasal cannula. He is supposed to take oxygen all the time, but states that in reality he only uses it when he is at home. The patient states that he is on an anticoagulant, whose name he does not recall, for A. fib/flutter. Other than the recurrent chest pain and chronic dyspnea, the patient denies having a recent fever, chills, sore throat, ear pain, nasal or sinus congestion, cough, palpitations, nausea, vomiting, constipation, diarrhea, abdominal pain, urinary symptoms, recent weight gain or weight loss, recent bloody bowel movements or black bowel movements, recent joint aches, headaches, or rashes. I reviewed the PMHx/PSHx/SocHx, which was reviewed with the patient by the RN. The patient's PCP is at [facility] in [place], [place]. He has received 2 COVID vaccinations, as well as an influenza vaccination this season. - Related Data Allergies Allergy/AdvReac Type Severity Reaction Status Date / Time No Known Allergies Allergy Verified 07/23/21 20:37 Home Meds: Home Meds Albuterol/Ipratropium [DuoNeb 3.0-0.5 MG/3 ML] 1 unit INH QID 01/29/18 [History] Aspirin 325 mg PO DAILY 01/29/18 [History] Cetirizine [ZyrTEC] 10 mg PO DAILY 01/29/18 [History] Cholecalciferol (Vitamin D3) [Vitamin D3] 1,000 unit PO DAILY 01/29/18 [History] Citalopram Hydrobromide [Celexa] 20 mg PO DAILY 01/29/18 [History] Divalproex Sodium [Depakote ER] 500 mg PO BEDTIME 01/29/18 [History] Doxazosin Mesylate [Cardura] 12 mg PO DAILY 01/29/18 [History] Finasteride [Proscar] 5 mg PO DAILY 01/29/18 [History] Gabapentin [Neurontin] 900 mg PO BEDTIME 01/29/18 [History] Hydrocodone/Acetaminophen [Hydrocodon-Acetaminophen 5-325] 1 - 2 tab PO Q4H PRN 01/29/18 [History] Hydrocortisone [Anusol-HC] 1 applic RECTAL QID 01/29/18 [History] Hydrophilic Ointment [Hydrophilic] 1 applic TOP BID PRN 01/29/18 [History] Losartan [Cozaar] 25 mg PO DAILY 01/29/18 [History] NIFEdipine [Procardia] 1 supp RECTAL BID PRN 01/29/18 [History] Naproxen Sodium [Aleve] 220 - 440 mg PO DAILY PRN 01/29/18 [History] Ondansetron [Zofran] 8 mg PO Q8H PRN 01/29/18 [History] Sennosides [Senna] 2 tab PO BID 01/29/18 [History] atorvaSTATin [Lipitor] 80 mg PO BEDTIME 01/29/18 [History] metFORMIN [Glucophage XR] 500 mg PO BID 01/29/18 [History] oxyCODONE 10 mg PO Q4H PRN 01/29/18 [History] witch Ciarra [Tucks] 1 applic TOP TID PRN 01/29/18 [History] Hydrocortisone [Anusol-Hc] 1 applic TP ASDIRECTED PRN 02/04/18 [History] Hydrocortisone1%-Clotrimazole 1 applic TOP BID 02/04/18 [History] Nifedipine 0.2%-Lidocaine 2%. 1 supp RECTAL BID PRN 02/04/18 [History] Sennosides/Docusate Sodium [Senna-Docusate Sodium] 2 each PO BID 02/04/18 [History] Past Medical History HEENT History: Reports: Epistaxis Cardiovascular History: Reports: High Cholesterol, Hypertension Respiratory History: Reports: COPD Other Respiratory History: lung CA Gastrointestinal History: Reports: Hemorrhoids Genitourinary History: Reports: BPH, Prostate Disorder Other Genitourinary History: states "i habe blood in my pee ometimes, at least thats what they tell me" Psychiatric History: Reports: Anxiety, Bipolar, Depression, Mood Swings Endocrine/Metabolic History: Reports: Diabetes, Type II, Obesity/BMI 30+ Oncologic (Cancer) History: Reports: 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 - Infectious Disease History Infectious Disease History: Reports: Novel Coronavirus - Past Surgical History GI Surgical History: Reports: Hernia, Abdominal Musculoskeletal Surgical History: Reports: Knee Replacement, Shoulder Replacement, Shoulder Surgery Social & Family History - Family History Family Medical History: No Pertinent Family History - Tobacco Use Tobacco Use Status *Q: Former Tobacco User Used Tobacco, but Quit: Yes Month/Year Tobacco Last Used: 1989 - Caffeine Use Caffeine Use: Reports: Coffee - Recreational Drug Use Recreational Drug Use: No - Living Situation & Occupation Living situation: Reports: Single Occupation: Retired ED ROS GENERAL - Review of Systems Review Of Systems: Comprehensive ROS is negative, except as noted in HPI. ED EXAM, GENERAL - Physical Exam Exam: See Below Exam Limited By: No Limitations General Appearance: Alert, WD/WN, No Apparent Distress Eye Exam: Bilateral Eye: EOMI, Normal Inspection Ears: Normal External Exam, Hearing Grossly Normal Nose: Normal Inspection Throat/Mouth: Normal Inspection, Normal Lips, Normal Voice, No Airway Compromise Head: Atraumatic, Normocephalic Neck: Normal Inspection, Full Range of Motion Respiratory/Chest: No Respiratory Distress, Lungs Clear, Normal Breath Sounds, No Accessory Muscle Use, Chest Non-Tender (including under his left breast) Cardiovascular: Normal Peripheral Pulses, No Gallop, No JVD, No Murmur, No Rub, Irregularly Irregular (regular rate) Peripheral Pulses: 3+: Radial (L), Radial (R) GI/Abdominal: Normal Bowel Sounds, Soft, Non-Tender, No Organomegaly, No Distention, No Abnormal Bruit, No Mass Back Exam: Normal Inspection, Full Range of Motion, NT Extremities: Normal Inspection, Normal Range of Motion, No Pedal Edema, Normal Capillary Refill Neurological: Alert, Oriented, Normal Cognition, No Motor/Sensory Deficits Psychiatric: Normal Affect Skin Exam: Warm, Dry, Intact, Normal Color, No Rash #1 Interpretation EKG Date: 07/23/21 Time: 20:38 Rhythm: A-Flutter (Variable conduction. Single PVC.) Rate (Beats/Min): 73 [place]: Normal QRS: Normal ST-T: Normal QT: Prolonged (QTc 479 ms) Comparison: NA - No Prior EKG Course - Vital Signs Last Recorded V/S: Last Vital Signs Temp 36.9 C 07/23/21 20:32 Pulse 69 07/23/21 20:32 Resp 20 07/23/21 20:32 BP 179/78 H 07/23/21 20:32 Pulse Ox 97 07/23/21 20:32 - Re-Assessments/Exams Free Text/Narrative Re-Assessment/Exam: 07/23/21 21:23 An ECG, obtained at triage, demonstrates atrial flutter with variable conduction, rate controlled, and a single PVC. There are no ischemic changes. His history is not consistent with either angina or an acute VA. He has chronic dyspnea for the past 9 years, unchanged, and no other associated symptoms. He states that he is on an anticoagulant, but does not recall which one. I am recommending a chest x-ray, but I do not see the need for blood work. The patient is in agreement. 07/23/21 22:14 Two-view chest radiograph reviewed. The cardiac silhouette is within normal limits. Aortosclerosis noted. No pulmonary vascular congestion. No pleural effusions. Small infiltrate versus atelectasis of the left base. No pneum othorax. Increased opacity at the right base noted, due to an overlying object. Left-sided Port-A-Cath. Right shoulder reverse prosthesis noted. Formal read per the Radiologist pending. 07/23/21 22:19 Chest x-ray results discussed with the patient and his daughter. I will discharge him home, to follow-up with his PCP. He tells me that he has a CT of his chest scheduled for later this week. Departure - Departure Time of Disposition: 22:19 Disposition: Home, Self-Care 01 Condition: Good Clinical Impression: Musculoskeletal chest pain - Discharge Information *PRESCRIPTION DRUG MONITORING PROGRAM REVIEWED*: Not Applicable *COPY OF PRESCRIPTION DRUG MONITORING REPORT IN PATIENT CAT: Not Applicable Instructions: Nonspecific Chest Pain, Adult, [id number] Referrals: PCP,Not In Area [Primary Care Provider] - Forms: ED Department Discharge Additional Instructions: You were seen in the emergency room after experiencing several episodes of brief left-sided chest pain. Work-up in the ER included an ECG and a chest x-ray. Your ECG found you to be in atrial flutter, rate controlled, with no ischemic changes, and your chest x-ray showed no acute problems. Based on your history, physical exam, and ER tests, the cause of your chest pain is most likely musculoskeletal in etiology. There is no suggestion that it is caused from your heart. You may proceed with your previously scheduled CT of your chest. If any other problems, please do not hesitate to return to the ER. Sepsis Event Note (ED) - Evaluation Sepsis Screening Result: No Definite Risk
--- NOTE | 2021-07-24 05:40 | CR ---
Chest: PA and lateral views of the chest were obtained. Comparison: Prior chest x-ray of 06/05/21. Patchy increased density is noted within the left lung base. Linear scarring is seen within the left upper lung. Left-sided infusion port is seen. Heart size is within normal limits. Tortuous thoracic aorta is seen. Right shoulder prosthesis is noted. Impression: 1. Slight density within the left lung base. Please correlate if patient has any symptoms to suggest pneumonia. 2. Slight scarring within the left upper chest. 3. Infusion port is seen. Right shoulder prosthesis is seen. Diagnostic code #3
== END 2021-07-23 22:34 | disposition home or self-care (01) ==
LOC: JD.ED 20:24
DX: R07.89 Other chest pain (principal); I48.92 Unspecified atrial flutter; E78.00 Pure hypercholesterolemia, unspecified; I10 Essential (primary) hypertension; J44.9 Chronic obstructive pulmonary disease, unspecified; E11.9 Type 2 diabetes mellitus without complications; E66.9 Obesity, unspecified; Z68.39 Body mass index [BMI] 39.0-39.9, adult; Z86.16 Personal history of COVID-19; Z87.891 Personal history of nicotine dependence; Z79.82 Long term (current) use of aspirin; Z79.84 Long term (current) use of oral hypoglycemic drugs; Z79.899 Other long term (current) drug therapy
CPT/HCPCS: 71046; 71046-26; 93005; 99285-25

== ENCOUNTER 2024-11-07 17:58 | Emergency (ER) | payer OTHER ==
[2024-11-07] MEDS: HYDROmorphone 0.5 MG/0.5 ML Syringe IVPUSH ONE ×2 (19:41→22:34)
[2024-11-07 19:44] LABS: BASOPHILS PERCENT AUTO 0.3 % (0.0-1.0); EOSINOPHILS PERCENT AUTO 0.5 % (0.0-6.0); HEMATOCRIT 32.2 % (42.0-52.0); HEMOGLOBIN 10.3 gm/dl (14.0-18.0); IMMATURE GRAN ABSOLUTE AUTO 0.02 K/mm3 (0.00-0.05); IMMATURE GRAN PERCENT AUTO 0.3 % (0.0-0.4); LYMPHOCYTES ABSOLUTE AUTO 0.5 K/mm3 (1.0-4.8); LYMPHOCYTES PERCENT AUTO 6.3 % (24.0-44.0); MEAN CORPUSCULAR VOLUME 90.7 fl (83.0-99.0); MEAN PLATELET VOLUME 9.7 fl (9.4-12.4); MONOCYTES ABSOLUTE AUTO 0.8 K/mm3 (0.0-0.8); MONOCYTES PERCENT AUTO 9.8 % (0.0-8.0); NEUTROPHILS ABSOLUTE AUTO 6.4 K/mm3 (1.8-7.7); NEUTROPHILS PERCENT AUTO 82.8 % (41.0-71.0); PLATELET COUNT,PLT 107 K/mm3 (150-400); RED BLOOD CELL COUNT 3.55 M/mm3 (4.52-5.90); WHITE BLOOD CELL COUNT,WBC 7.68 K/mm3 (3.9-11.3)
[2024-11-07] MEDS: Sodium Chloride 0.9% 10 ML Syringe FLUSH PRN (19:48)
[2024-11-07 20:04] LABS: APPEARANCE,URINE CLOUDY (Clear); BILIRUBIN,URINE NEGATIVE (Negative); COLOR,URINE AMBER (Yellow); GLUCOSE,URINE NEGATIVE (Negative); KETONES,URINE NEGATIVE (Negative); LEUKOCYTE ESTERASE,URINE NEGATIVE (Negative); NITRITE,URINE NEGATIVE (Negative); OCCULT BLOOD,URINE 2+ (Negative); PROTEIN,URINE 3+ (Negative)
[2024-11-07 20:14] LABS: ALBUMIN 3.6 g/dl (3.4-5.0); ANION GAP 13.3 (5-15); BILIRUBIN TOTAL 0.6 mg/dL (0.2-1.0); BUN/CREATININE RATIO 18.1 (14-18); CREATININE 1.6 mg/dL (0.7-1.3); EST CRCL DRUG DOSING (CG) 33.28 mL/min; POTASSIUM,K 4.3 mEq/L (3.5-5.1); PROTEIN TOTAL,TP 7.1 g/dl (6.4-8.2)
[2024-11-07 20:18] LABS: BACTERIA,URINE FEW /hpf (FEW); EPITHELIAL CELLS,URINE NOT SEEN /hpf (0-5); MUCUS,URINE NOT SEEN /hpf (FEW); RBC,URINE TOO NUMEROUS TO CNT /hpf (0-5); WBC,URINE 0-5 /hpf (0-5)
[2024-11-07] MEDS: Ketorolac 15 MG/ML SDV IVPUSH ONE (20:59)
[2024-11-07] MEDS ORDERED: Tamsulosin 0.4 MG Cap.ER ONE (21:34)
[2024-11-07] MEDS: Tamsulosin 0.4 MG Cap.ER PO ONE (21:35)
== END 2024-11-07 22:38 | disposition home or self-care (01) ==
LOC: JD.ED 17:58
DX: N13.2 Hydronephrosis with renal and ureteral calculous obstruction (principal); I10 Essential (primary) hypertension; E78.00 Pure hypercholesterolemia, unspecified; J44.9 Chronic obstructive pulmonary disease, unspecified; E11.9 Type 2 diabetes mellitus without complications; E66.9 Obesity, unspecified; Z68.32 Body mass index [BMI] 32.0-32.9, adult; Z86.16 Personal history of COVID-19; Z79.51 Long term (current) use of inhaled steroids; Z79.82 Long term (current) use of aspirin; Z79.84 Long term (current) use of oral hypoglycemic drugs; Z79.899 Other long term (current) drug therapy
CPT/HCPCS: 36415; 72131; 74176; 80053; 81001; 83690; 85025; 96374; 96375; 96376; 99284; A9270; J1885

== ENCOUNTER 2025-06-29 07:34 | Day surgery (SDC) | payer OTHER ==
[~2025-06-29 07:34] MED LIST: Sodium Chloride 0.9% 10 ML Syringe FLUSH PRN; Sodium Chloride 0.9% 10 ML Syringe FLUSH SCH
[2025-06-29] MEDS: Lactated Ringers 1,000 ML IV SCH (08:05)
[2025-06-29] MEDS ORDERED: propofoL 500 MG/50 ML 50 ML ONE (08:11)
[2025-06-29] MEDS ORDERED: Ropivacaine 0.5% 5 MG/ML 30 ML SDV ONE (08:14)
[2025-06-29] MEDS ORDERED: Dexamethasone 4 MG/ML 5 ML MDV ONE (08:15)
[2025-06-29] MEDS ORDERED: dexmedeTOMIDine HCl 200 MCG/2 ML SDV ONE (08:17)
[2025-06-29] MEDS ORDERED: Midazolam 1 MG/ML 2 ML SDV ONE (08:17)
[2025-06-29] MEDS ORDERED: fentaNYL 100 MCG/2 ML SDV ONE (08:17)
[2025-06-29] MEDS ORDERED: Ketamine HCL/NACL, ISO-OSM 50 MG/5 ML Syringe ONE (08:35)
[2025-06-29 08:56] LABS: INR 1.1
[2025-06-29 08:57] LABS: PTT,PARTIAL THROMBOPLSTIN TIME 26.8 SECONDS (21.7-31.4)
[2025-06-29] MEDS ORDERED: ePHEDrine 50 MG/ML SDV ONE (09:43)
[2025-06-29] MEDS ORDERED: Glycopyrrolate 0.2 MG/ML 2 ML SDV ONE (09:43)
[2025-06-29] MEDS ORDERED: Esmolol 100 MG/10 ML SDV ONE (10:12)
[2025-06-29] MEDS ORDERED: Propofol 200 MG/20 ML SDV ONE (10:27)
[2025-06-30] MEDS ORDERED: Lactated Ringers 1,000 ML IV SCH (00:01)
[2025-06-30] MEDS ORDERED: Sodium Chloride 0.9% 10 ML Syringe FLUSH PRN (00:01)
[2025-06-30] MEDS ORDERED: Sodium Chloride 0.9% 10 ML Syringe FLUSH SCH (00:01)
== END 2025-06-29 13:41 | disposition home or self-care (01) ==
LOC: JD.SDS 07:34
PROVIDERS: ATTEND Orthopaedic Surgery
DX: M75.102 Unspecified rotator cuff tear or rupture of left shoulder, not specified as traumatic (principal); M12.812 Other specific arthropathies, not elsewhere classified, left shoulder; I25.10 Atherosclerotic heart disease of native coronary artery without angina pectoris; I48.91 Unspecified atrial fibrillation; I10 Essential (primary) hypertension; E11.9 Type 2 diabetes mellitus without complications
CPT/HCPCS: 23472; 36415; 64415; 76000; 85610; 85730; 97116; 97161; 97530; A9270; C1713; C1769; C1776; J0690; J1100; J1596; J1805; J2250; J2704; J2795; J3010; J3373; J7120; 01638; 99100; J3490